=== PATIENT | male | born 1975 | race African-American/Black ===

== ENCOUNTER 2020-07-31 12:47 | Emergency (ER) | payer MEDICAID ==
[~2020-07-31] VITALS: Ht 167.6 cm; Wt 81.6 kg
[2020-07-31] MEDS ORDERED: ACETAMINOPHEN 325MG TABLET PO STA (13:31)
[2020-07-31] MEDS ORDERED: IBUPROFEN 600MG TABLET PO STA (13:31)
[2020-07-31 15:59] VITALS: BP 118/78
== END 2020-07-31 15:59 | disposition home or self-care (01) ==
LOC: ER 12:47
DX: U07.1 COVID-19 (principal); B34.9 Viral infection, unspecified
CPT/HCPCS: 71045; 87635; 93005; 99285

== ENCOUNTER 2020-08-05 01:43 | Inpatient (IN) | payer MEDICAID ==
[~2020-08-05] VITALS: Ht 195.6 cm; Wt 82.6 kg
[2020-08-05 04:03] LABS: BASOPHILS % 0.2 % (0.0-2.0); HEMATOCRIT. 41.1 % (42.0-52.0); HEMOGLOBIN. 13.9 g/dL (14.0-18.0); LYMPHOCYTES % 27.4 % (20.0-50.0); MEAN CORPUSCULAR HEMOGLOBIN 30.4 pg (28.0-32.0); MEAN CORPUSCULAR VOLUME 89.7 fL (80.0-94.0); MEAN PLATELET VOLUME 9.8 fl (7.4-10.4); MONOCYTES % 6.1 % (2.0-8.0); NEUTROPHILS % 66.3 % (40.0-76.0); PLATELET 121 x1000/uL (130-400); RED BLOOD CELL COUNT 4.58 mill/uL (4.7-6.1); RED CELL DISTRIBUTION WIDTH 12.6 % (11.6-14.6)
[2020-08-05 04:05] LABS: CHLORIDE 103 mEq/L (98-107)
[2020-08-05] MEDS ORDERED: DEXAMETHASONE 4MG/ML 1ML VIAL IV ONE (05:30)
[2020-08-05] MEDS ORDERED: CEFTRIAXONE 1 G PREMIX 50 ML IV ONE (05:30)
[2020-08-05] MEDS ORDERED: HYDROCODONE/ACETAMINOPHEN 10/325MG TABLET PO PRN (22:00)
[2020-08-05] MEDS ORDERED: BENZONATATE 100MG CAPSULE PO PRN (22:00)
[2020-08-05] MEDS ORDERED: ONDANSETRON HCL 4MG/2ML INJ IV PRN (22:00)
[2020-08-05] MEDS ORDERED: ACETAMINOPHEN 325MG TABLET PO PRN (22:00)
[2020-08-05] MEDS ORDERED: CLONIDINE 0.1MG TABLET PO PRN (22:00)
[2020-08-05] MEDS ORDERED: DIPHENHYDRAMINE 50MG/ML VIAL IV PRN (22:00)
[2020-08-05] MEDS ORDERED: ZOLPIDEM TARTRATE 5MG TABLET PO PRN (22:00)
[2020-08-05] MEDS ORDERED: KETOROLAC 30MG/ML VIAL IV PRN (22:00)
[2020-08-05] MEDS ORDERED: ALBUTEROL 6.7GM HFA INHALER ORI PRN (22:15)
[2020-08-05] MEDS: SODIUM CHLORIDE 0.9% INJ 3ML FLUSH IVF SCH (22:46)
[2020-08-05] MEDS ORDERED: AZITHROMYCIN 500 MG in DEXT 5% WATER 250 ML IV SCH (23:00)
[2020-08-05] MEDS: ENOXAPARIN 40MG/0.4ML SYR SUBCUT SCH (23:00)
[2020-08-06 00:20] LABS: BASOPHILS % 0.1 % (0.0-2.0); HEMATOCRIT. 38.7 % (42.0-52.0); HEMOGLOBIN. 13.9 g/dL (14.0-18.0); LYMPHOCYTES % 15.5 % (20.0-50.0); MEAN CORPUSCULAR HEMOGLOBIN 31.7 pg (28.0-32.0); MEAN CORPUSCULAR VOLUME 88.6 fL (80.0-94.0); MEAN PLATELET VOLUME 8.9 fl (7.4-10.4); MONOCYTES % 7.6 % (2.0-8.0); NEUTROPHILS % 76.8 % (40.0-76.0); PLATELET 150 x1000/uL (130-400); RED BLOOD CELL COUNT 4.37 mill/uL (4.7-6.1); RED CELL DISTRIBUTION WIDTH 12.9 % (11.6-14.6)
[2020-08-06] MEDS ORDERED: CEFTRIAXONE 1 G PREMIX 50 ML IV SCH (06:00)
[2020-08-06] MEDS: SODIUM CHLORIDE 0.9% INJ 3ML FLUSH IVF SCH ×3 (06:20→22:28)
[2020-08-06] MEDS ORDERED: DEXAMETHASONE 10 MG/ML VIAL IV SCH (09:00)
[2020-08-06] MEDS: PANTOPRAZOLE 40MG DR TABLET PO SCH ×2 (09:51→22:28)
[2020-08-06] MEDS: GUAIFENESIN 600MG ER TABLET PO SCH ×2 (09:51→22:28)
[2020-08-06 13:03] VITALS: BP 115/75
[2020-08-06] MEDS: GUAIFENESIN 200MG/10ML SUGAR FREE UDC PO PRN ×2 (14:13→18:31)
[2020-08-06] MEDS ORDERED: PNEUMOCOCCAL 23-VAL P-SAC VAC 0.5 ML IM ONE (15:30)
[2020-08-06] MEDS ORDERED: INFLUENZA VACCINE 05/PF 0.5 ML VIAL IM ONE (15:30)
[2020-08-06 16:00] VITALS: BP 103/70
[2020-08-06 17:49] LABS: BG BASE EXCESS 1.1 mmol/L (-2.0-2.0); BG CARBOXYHEMOGLOBIN 0.4 % (0.5-1.5); BG DEOXYHEMOGLOBIN 4.4 % (0.0-5.0); BG FRACTION INSPIRED OXYGEN 36; BG HCO3 ACT 25.8 mmol/L (22.0-26.0); BG METHEMOGLOBIN 0.1 % (0.0-1.5); BG OXYGEN SATURATION 95.6 % (92.0-98.5); BG OXYHEMOGLOBIN 95.1 % (94.0-97.0); BG PCO2 41.2 mmHg (35.0-45.0); BG PH 7.414 (7.350-7.450); BG PO2 80.9 mmHg (75.0-100.0); BG SAMPLE SITE LEFT RADIAL; BG TOTAL HEMOGLOBIN 14.3 g/dL (12.0-18.0); BG VENT MODE NASAL CANNULA
[2020-08-06] MEDS ORDERED: ERGOCALCIFEROL 50000UNITS CAPSULE PO SCH (18:00)
[2020-08-06] MEDS: CHOLECALCIFEROL (D3) 1000 UNIT TABLET PO SCH (18:28)
[2020-08-06] MEDS: DOXYCYCLINE HYCLATE 100MG CAPSULE PO SCH (18:28)
[2020-08-06 20:00] VITALS: BP 107/70
[2020-08-06] MEDS: ENOXAPARIN 40MG/0.4ML SYR SUBCUT SCH (22:28)
[2020-08-06] MEDS: ASCORBIC ACID 500 MG TABLET PO SCH (22:28)
[2020-08-07] VITALS: BP 126/75
[2020-08-07 04:00] VITALS: BP 119/76
[2020-08-07] MEDS: PANTOPRAZOLE 40MG DR TABLET PO SCH (06:40)
[2020-08-07] MEDS: DOXYCYCLINE HYCLATE 100MG CAPSULE PO SCH ×2 (06:40→18:03)
[2020-08-07] MEDS: SODIUM CHLORIDE 0.9% INJ 3ML FLUSH IVF SCH ×3 (06:40→22:11)
[2020-08-07 08:00] VITALS: BP 105/73
[2020-08-07] MEDS: CHOLECALCIFEROL (D3) 1000 UNIT TABLET PO SCH (08:19)
[2020-08-07] MEDS: GUAIFENESIN 600MG ER TABLET PO SCH ×2 (08:19→22:10)
[2020-08-07] MEDS: ASCORBIC ACID 500 MG TABLET PO SCH ×2 (08:20→22:10)
[2020-08-07] MEDS: DEXAMETHASONE 10 MG/ML VIAL IV SCH (08:21)
[2020-08-07] MEDS ORDERED: CEFTRIAXONE 1,000 MG in DEXTROSE 5% WATER 50 ML IV SCH (09:00)
[2020-08-07 12:00] VITALS: BP 113/77
[2020-08-07] MEDS: GUAIFENESIN 200MG/10ML SUGAR FREE UDC PO PRN ×2 (13:53→22:32)
[2020-08-07] MEDS ORDERED: MECLIZINE 25MG TABLET PO PRN (15:30)
[2020-08-07 16:00] VITALS: BP 127/82
[2020-08-07 20:00] VITALS: BP 117/78
[2020-08-07] MEDS: FAMOTIDINE 20MG TABLET PO SCH (22:10)
[2020-08-07] MEDS: ENOXAPARIN 40MG/0.4ML SYR SUBCUT SCH (22:32)
[2020-08-08] VITALS: BP 117/75
[2020-08-08 04:00] VITALS: BP 121/83
[2020-08-08] MEDS: SODIUM CHLORIDE 0.9% INJ 3ML FLUSH IVF SCH ×3 (07:18→22:05)
[2020-08-08] MEDS: DOXYCYCLINE HYCLATE 100MG CAPSULE PO SCH ×2 (07:18→17:41)
[2020-08-08] MEDS: FAMOTIDINE 20MG TABLET PO SCH ×2 (07:18→20:35)
[2020-08-08 08:00] VITALS: BP 126/78
[2020-08-08] MEDS: ASCORBIC ACID 500 MG TABLET PO SCH ×2 (09:45→20:35)
[2020-08-08] MEDS: CHOLECALCIFEROL (D3) 1000 UNIT TABLET PO SCH (09:45)
[2020-08-08] MEDS: GUAIFENESIN 600MG ER TABLET PO SCH ×2 (09:45→20:35)
[2020-08-08] MEDS: DEXAMETHASONE 10 MG/ML VIAL IV SCH (09:46)
[2020-08-08 12:00] VITALS: BP 113/70
[2020-08-08 16:00] VITALS: BP 116/75
[2020-08-08 20:00] VITALS: BP 118/71
[2020-08-08] MEDS: ENOXAPARIN 40MG/0.4ML SYR SUBCUT SCH (20:36)
[2020-08-09] VITALS: BP 124/80
[2020-08-09 04:00] VITALS: BP 120/68
[2020-08-09] MEDS: SODIUM CHLORIDE 0.9% INJ 3ML FLUSH IVF SCH ×3 (05:12→20:03)
[2020-08-09] MEDS: DOXYCYCLINE HYCLATE 100MG CAPSULE PO SCH ×2 (05:40→17:49)
[2020-08-09] MEDS: FAMOTIDINE 20MG TABLET PO SCH ×2 (06:41→20:02)
[2020-08-09] MEDS: GUAIFENESIN 200MG/10ML SUGAR FREE UDC PO PRN (06:45)
[2020-08-09 08:00] VITALS: BP 120/80
[2020-08-09] MEDS: CHOLECALCIFEROL (D3) 1000 UNIT TABLET PO SCH (09:26)
[2020-08-09] MEDS: ASCORBIC ACID 500 MG TABLET PO SCH ×2 (09:26→20:02)
[2020-08-09] MEDS: DEXAMETHASONE 10 MG/ML VIAL IV SCH (09:26)
[2020-08-09] MEDS: GUAIFENESIN 600MG ER TABLET PO SCH ×2 (09:27→20:02)
[2020-08-09 16:00] VITALS: BP 122/76
[2020-08-09 20:00] VITALS: BP 116/82
[2020-08-09] MEDS: ENOXAPARIN 40MG/0.4ML SYR SUBCUT SCH (20:03)
[2020-08-10] VITALS: BP 124/78
[2020-08-10] MEDS: GUAIFENESIN 200MG/10ML SUGAR FREE UDC PO PRN ×2 (05:35→22:17)
[2020-08-10] MEDS: FAMOTIDINE 20MG TABLET PO SCH ×2 (07:23→22:17)
[2020-08-10] MEDS: DOXYCYCLINE HYCLATE 100MG CAPSULE PO SCH ×2 (07:23→17:29)
[2020-08-10] MEDS: SODIUM CHLORIDE 0.9% INJ 3ML FLUSH IVF SCH ×3 (07:24→22:18)
[2020-08-10 08:00] VITALS: BP 105/73
[2020-08-10] MEDS: ASCORBIC ACID 500 MG TABLET PO SCH ×2 (08:27→22:17)
[2020-08-10] MEDS: GUAIFENESIN 600MG ER TABLET PO SCH ×2 (08:27→21:00)
[2020-08-10] MEDS: DEXAMETHASONE 10 MG/ML VIAL IV SCH (08:27)
[2020-08-10 12:00] VITALS: BP 107/69
[2020-08-10 16:00] VITALS: BP 114/69
[2020-08-10] MEDS: ENOXAPARIN 40MG/0.4ML SYR SUBCUT SCH (22:16)
[2020-08-11] VITALS: BP 107/72
[2020-08-11] MEDS: ACETAMINOPHEN 325MG TABLET PO PRN ×2 (00:24→14:34)
[2020-08-11 04:00] VITALS: BP 101/70
[2020-08-11] MEDS: DOXYCYCLINE HYCLATE 100MG CAPSULE PO SCH (07:08)
[2020-08-11] MEDS: FAMOTIDINE 20MG TABLET PO SCH (07:08)
[2020-08-11] MEDS: SODIUM CHLORIDE 0.9% INJ 3ML FLUSH IVF SCH ×2 (07:08→14:07)
[2020-08-11 08:00] VITALS: BP 95/67
[2020-08-11] MEDS: DEXAMETHASONE 10 MG/ML VIAL IV SCH (09:03)
[2020-08-11] MEDS: GUAIFENESIN 600MG ER TABLET PO SCH (09:03)
[2020-08-11] MEDS: ASCORBIC ACID 500 MG TABLET PO SCH (09:04)
[2020-08-11] MEDS: GUAIFENESIN 200MG/10ML SUGAR FREE UDC PO PRN (09:04)
[2020-08-11 12:00] VITALS: BP 102/70
[2020-08-11 15:50] VITALS: BP 102/75
== END 2020-08-11 17:01 | disposition home or self-care (01) | DRG 720 ==
LOC: ER 01:43 → MICUSO 09:42 → EDBEDREQ 09:48 → 7WST 08-06 10:58
PROVIDERS: ADMIT Internal Medicine; ATTEND Internal Medicine
DX: A41.89 Other specified sepsis (principal); U07.1 COVID-19; J12.89 Other viral pneumonia; D72.810 Lymphocytopenia; J96.01 Acute respiratory failure with hypoxia
CPT/HCPCS: 36415; 36600; 71045; 80048; 80076; 82375; 82805; 83605; 83615; 84145; 84484; 85025; 85379; 86140; 87804; 90686; 90732; 93005; 99291; J0456; J0696; J1100; J1650; J7060; J8597; U0003

== ENCOUNTER 2021-12-14 08:22 | Emergency (ER) | payer MEDICAID ==
[~2021-12-14] VITALS: Ht 193 cm; Wt 82.0 kg
[2021-12-14 08:25] VITALS: BP 154/88
[2021-12-14] MEDS ORDERED: ACETAMINOPHEN 325MG TABLET PO ONE (08:45)
[2021-12-14 09:00] LABS: CLARITY URINE CLEAR (CLEAR); COLOR URINE YELLOW (YELLOW); KETONES URINE NEGATIVE (NEGATIVE); LEUKOCYTE ESTERASE URINE TRACE (NEGATIVE); NITRITE URINE NEGATIVE (NEGATIVE); OCCULT BLOOD URINE NEGATIVE (NEGATIVE); PH URINE 6.5 (4.5-8.0); PROTEIN URINE NEGATIVE (NEGATIVE); SPECIFIC GRAVITY URINE 1.023 (1.005-1.030)
[2021-12-14] MEDS ORDERED: CEFU500T41 MT (10:29)
== END 2021-12-14 10:56 | disposition home or self-care (01) ==
LOC: ER 08:22
DX: S62.638A Displaced fracture of distal phalanx of other finger, initial encounter for closed fracture (principal); N39.0 Urinary tract infection, site not specified; X58.XXXA Exposure to other specified factors, initial encounter; Y93.89 Activity, other specified; Y92.89 Other specified places as the place of occurrence of the external cause; Y99.8 Other external cause status
CPT/HCPCS: 29130; 73130; 81003; 99284